=== PATIENT | male | born 1975 | race Caucasian/White ===

== ENCOUNTER 2021-09-30 08:19 | Emergency (ER) | payer SELFPAY ==
--- NOTE | ~2021-09-30 | XR_ITS ---
EXAMINATION: XR chest 2V DATE: 09/30/2021 08:36 INDICATION: Chest tightness. TECHNIQUE: Frontal and lateral views of the chest were obtained. COMPARISON: Chest 2 views 09/06/2013, CT abdomen 12/03/2004 FINDINGS: The chest demonstrates clear lungs without pneumonia, pleural effusion, or pneumothorax. Th e heart size is normal. IMPRESSION: 1. No acute cardiopulmonary disease. Reviewed, dictated and finalized at location A. [employer]
--- NOTE | 2021-09-30 08:21 | ECG_ITS ---
Measurements Intervals [place] Rate: 82 P: 41 MS: 166 QRS: -3 QRSD: 94 T: 46 QT: 355 QTc: 417 Interpretive Statements SINUS RHYTHM NORMAL ECG Electronically Signed On 09-30-2021 8:39:48 [employer]SUM[employer] INSPECTOR by Nasir Vora D.O.
[2021-09-30 08:23] VITALS: BP 168/101; PULSE 98; RESP 18; TEMP 36.7; O2SAT 100
[2021-09-30 08:47] LABS: Basophils Absolute Auto 0.1 K/mm3 (0.0-0.1); Basophils Percent Auto 0.5 % (0.2-1.2); Eosinophils Absolute Auto 0.1 K/mm3 (0-0.3); Eosinophils Percent Auto 0.8 % (0-4.4); Immature Granulocyte Absolute 0.07 K/mm3 (0.00-0.031); Immature Granulocyte Percent A 0.7 % (0-0.5); Lymphocytes Absolute Auto 2.32 K/mm3 (0.9-3.2); Lymphocytes Percent Auto 22.7 % (18.3-44.2); Mean Corpuscular Hemoglobin 31.8 pg (26-34); Mean Corpuscular Volume 93.4 fl (80-100); Mean Platelet Volume 9.6 fl (7.4-10.4); Monocytes Absolute Auto 0.7 K/mm3 (0.1-0.6); Monocytes Percent Auto 6.4 % (2.6-8.5); Neutrophils Absolute Auto 7.1 K/mm3 (1.3-6.7); Neutrophils Percent Auto 68.9 % (45.5-73.1); Platelet Count Result 254 k/mm3 (150-375); Red Blood Count 5.03 M/mm3 (4.6-6.20); White Blood Count 10.2 K/mm3 (4.5-10.0)
--- NOTE | 2021-09-30 08:52 | ED.CHESTPAIN ---
HPI - Chest Pain General Chief Complaint: Chest Pain Stated Complaint: chest pain Time Seen by Provider: 09/30/21 08:52 Source: patient Mode of arrival: ambulatory Limitations: no limitations History of Present Illness HPI narrative: The patient is a 46 yo male with a history of CAD, WPW s/p cardiac ablation, HTN, presenting for evaluation of chest pain. Patient reports chest pain with associated lower back pain. Pain has been present over the past 15 hours. No intermittent nature to this. Reports it is dull, aching. Pt reports central chest tightness without radiation of the pain to the neck, jaw, or back. He denies nausea, vomiting or dyspnea. No diaphoresis. Patient also reports lower back pain. 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 Patient does smoke. Significant risk factors include history of previous CT, stent placement, positive family history. Pt has followed with our heart care group in the past and has seen Dr. Winn with EP at [facility] in the past. Pt reports significant stress with the holidays, including father who recently . Patient denies recent long car or air travel. No history of PE. No unilateral leg swelling or pain. Related Data Allergies Allergy/AdvReac Type Severity Reaction Status Date / Time No Known Allergies Allergy Unknown Verified 12/22/18 18:32 Chocolate Allergy Unknown Uncoded 12/22/18 18:32 Review of Systems Review of Systems: CONSTITUTIONAL: Denies fever, chills, or sweats. EYES: Denies visual changes, redness, or discharge. ENT: Denies rhinorrhea, congestion, sore throat, or otalgia. CARDIOVASCULAR: Reports chest pain without palpitations RESPIRATORY: Denies cough or dyspnea. GASTROINTESTINAL: Denies abdominal pain, nausea, vomiting, or diarrhea. GENITOURINARY: Denies dysuria or hematuria. SKIN: Denies rash or itching. MUSCULOSKELETAL: Denies back pain, joint pain, or myalgia. NEUROLOGIC: Denies headache, numbness, or weakness. PSYCHIATRIC: Reports anxiety [facility] Social History Social History (Updated 09/30/21 @ 09:22 by Farheen Camacho MD) Smoking status: Current every day smoker Alcohol intake: never Substance use: never Living arrangements: with family Gender identity (if verbalized by the patient): Male Exam Narrative: GENERAL: Awake, alert, conversant HEAD: Normocephalic, atraumatic. EYES: PERRLA and EOMI. ENT: Nares clear, no rhinorrhea or epistaxis. Mucous membranes moist. NECK: Supple. CHEST: No respiratory distress, breathing even and non labored, no chest wall tenderness HEART: Regular rate, sinus rhythm ABDOMEN:Non distended, non tender EXTREMITIES: Normal range of motion. No edema. SKIN: Warm, dry, no rash. NEURO:No focal deficits. Alert and oriented x3 Course Vital Signs Vital signs: Vital Signs Temperature 36.7 C 09/30/21 08:23 Pulse Rate 98 09/30/21 08:23 Respiratory Rate 18 09/30/21 08:23 Blood Pressure 168/101 H 09/30/21 08:23 Pulse Oximetry 100 09/30/21 08:23 Temperature 36.7 C 09/30/21 08:23 Pulse Rate 98 09/30/21 08:23 Respiratory Rate 18 09/30/21 08:23 Blood Pressure 168/101 H 09/30/21 08:23 Pulse Oximetry 100 09/30/21 08:23 MDM - Chest Pain MDM Narrative Medical decision making narrative: Patient presenting for evaluation of chest pain that has been constant over the past 15 hours. At the time of assessment, ABCs are intact, patient is mildly hypertensive. Patient's EKG and labs are without significant high risk changes. EKG without acute ischemic changes. Cardiac risk factors reviewed. Patient is felt to be high risk for ACS given symptoms and history.. Pain was not sudden or maximal or onset without tearing or ripping quality. No other signs or symptoms to suggest aortic dissection. A low risk well's criteria is noted, PE is felt to be unlikely. No pneumonia seen on evaluation today. In
[2021-09-30 09:07] LABS: INR 0.9; Prothrombin Time 12.3 Seconds (11.1-14.7)
[2021-09-30 09:08] LABS: Partial Thromboplastin Time 30.9 SECONDS (22.3-36.8)
[2021-09-30 09:29] LABS: Alanine Aminotransferase 37 U/L (4-50); Albumin Level 4.6 g/dL (3.5-5.1); Alkaline Phosphatase 84 U/L (38-126); Anion Gap 10 mmol/L (8-16); Aspartate Amino Transferase 30 U/L (17-59); Bilirubin,Total 0.4 mg/dL (0.2-1.3); Blood Urea Nitrogen 9 mg/dL (9-20); Calcium 9.5 mg/dL (8.4-10.2); Carbon Dioxide 27 mmol/L (22-30); Chloride 101 mmol/L (98-107); Estimated CRCL calculation 92 ml/min; Estimated Glomerular Filt Rate > 60; Glucose 103 mg/dL (65-110); Lipase 69 U/L (23-300); Potassium 4.1 mmol/L (3.4-5.0); Sodium 138 mmol/L (137-145)
[2021-09-30 10:06] LABS: Troponin I < 0.012 ng/mL (0.000-0.034)
== END 2021-09-30 12:01 | disposition home or self-care (01) ==
PROVIDERS: Emergency Provider Emergency Medicine
DX: R07.89 Other chest pain (principal); I25.10 Atherosclerotic heart disease of native coronary artery without angina pectoris; I10 Essential (primary) hypertension; F17.200 Nicotine dependence, unspecified, uncomplicated
CPT/HCPCS: 36415; 71046; 80053; 83690; 84484; 85025; 85610; 85730; 93005; 99284